=== PATIENT | female | born 1965 | race Two or more races ===

== ENCOUNTER 2016-10-15 14:07 | Emergency (ER) | payer OTHER ==
[~2016-10-15] VITALS: Ht 162.6 cm; Wt 57.1 kg
[2016-10-15 17:50] LABS: APPEARANCE CSF CLEAR; COLOR CSF COLORLESS; RBC CSF 324 /cumm (0); WBC CSF 0 /cumm (0-5)
[2016-10-15 17:52] LABS: TOTAL PROTEIN CSF 35.1 mg/dL (15-45)
[2016-10-15 18:16] LABS: APPEARANCE CSF CLEAR; COLOR CSF COLORLESS; RBC CSF 358 /cumm (0); WBC CSF 0 /cumm (0-5)
[2016-10-15 19:46] LABS: BASOPHIL % 0.7 % (0-2); PLATELET COUNT 361 x10^3mcL (130-400); RED CELL DISTRIBUTION WIDTH 12.8 % (11.5-14.5)
[2016-10-15 19:53] LABS: CALCIUM 9.2 mg/dL (8.5-10.1); CARBON DIOXIDE 29.9 mmol/L (21-32); CHLORIDE SERUM 104 mmol/L (98-107); CREATININE SERUM 0.7 mg/dL (0.6-1.0); GFR1 > 60 mL/min; GLUCOSE SERUM 85 mg/dL (74-106); SODIUM SERUM 140 mmol/L (136-145)
[2016-10-15 19:57] LABS: ALBUMIN 4.1 g/dL (3.4-5.0); ALKALINE PHOSPHATASE 80 U/L (46-116); ALT/SGPT 22 U/L (14-59); AST/SGOT 21 U/L (15-37); BILIRUBIN TOTAL 0.3 mg/dL (0.20-1.00); PHOSPHOROUS 3.8 mg/dL (2.5-4.9); TOTAL PROTEIN, SERUM 7.9 g/dL (6.4-8.2); URIC ACID 3.8 mg/dL (2.6-6.0)
[2016-10-15 19:58] LABS: CHOLESTEROL 265 mg/dL (<200); HDL CHOLESTEROL 89 mg/dL (40-60)
[2016-10-15 20:20] VITALS: BP 151/74
== END 2016-10-15 20:20 | disposition short-term general hospital (02) ==
LOC: ED 14:07
PROVIDERS: Emergency Medicine
DX: I60.9 Nontraumatic subarachnoid hemorrhage, unspecified (principal); E78.5 Hyperlipidemia, unspecified
CPT/HCPCS: 36415; 83880